=== PATIENT | male | born 1945 ===

== ENCOUNTER 2023-05-17 06:00 | Outpatient (RCR) | payer MEDICARE, SELFPAY | END 2023-05-19 23:59 | disposition home or self-care (01) | LOC: GOT 06:00 | PROVIDERS: Visit Provider Physical Medicine & Rehabilitation | DX: R29.818 Other symptoms and signs involving the nervous system (principal) | CPT/HCPCS: 97110; 97112; 97166 ==

== ENCOUNTER 2023-05-17 06:00 | Outpatient (RCR) | payer MEDICARE, SELFPAY | END 2023-05-19 23:59 | disposition home or self-care (01) | LOC: GPT 06:00 | PROVIDERS: Visit Provider Physical Medicine & Rehabilitation | DX: M62.81 Muscle weakness (generalized) (principal) | CPT/HCPCS: 97110; 97112; 97162 ==

== ENCOUNTER 2023-05-20 06:00 | Outpatient (RCR) | payer MEDICARE, SELFPAY | END 2023-06-19 23:59 | disposition home or self-care (01) | LOC: GPT 06:00 | PROVIDERS: Visit Provider Physical Medicine & Rehabilitation | DX: M62.81 Muscle weakness (generalized) (principal) | CPT/HCPCS: 97110; 97112 ==

== ENCOUNTER 2023-05-20 06:00 | Outpatient (RCR) | payer MEDICARE, SELFPAY | END 2023-06-19 23:59 | disposition home or self-care (01) | LOC: GOT 06:00 | PROVIDERS: Visit Provider Physical Medicine & Rehabilitation | DX: I69.351 Hemiplegia and hemiparesis following cerebral infarction affecting right dominant side (principal); M62.81 Muscle weakness (generalized) | CPT/HCPCS: 97110; 97112 ==

== ENCOUNTER 2023-06-20 06:00 | Outpatient (RCR) | payer MEDICARE, SELFPAY | END 2023-07-19 23:59 | disposition home or self-care (01) | LOC: GOT 06:00 | PROVIDERS: Visit Provider Physical Medicine & Rehabilitation | DX: I69.939 Monoplegia of upper limb following unspecified cerebrovascular disease affecting unspecified side (principal) | CPT/HCPCS: 97110; 97112; 97140 ==

== ENCOUNTER 2023-06-23 16:04 | Outpatient (RCR) | payer MEDICARE, SELFPAY | END 2023-07-20 23:59 | disposition home or self-care (01) | LOC: GPT 16:04 | PROVIDERS: Visit Provider Physical Medicine & Rehabilitation | DX: M62.81 Muscle weakness (generalized) (principal) | CPT/HCPCS: 97110; 97112; 97164 ==

== ENCOUNTER 2023-07-21 06:00 | Outpatient (RCR) | payer MEDICARE, SELFPAY | END 2023-08-18 23:59 | disposition home or self-care (01) | LOC: GPT 06:00 | PROVIDERS: Visit Provider Physical Medicine & Rehabilitation | DX: M62.81 Muscle weakness (generalized) (principal) | CPT/HCPCS: 97110; 97112; 97164; 97530 ==

== ENCOUNTER 2023-08-19 06:00 | Outpatient (RCR) | payer MEDICARE, SELFPAY | END 2023-09-18 23:59 | disposition home or self-care (01) | LOC: GPT 06:00 | PROVIDERS: Visit Provider Physical Medicine & Rehabilitation | DX: M62.81 Muscle weakness (generalized) (principal) | CPT/HCPCS: 97110; 97112 ==

== ENCOUNTER 2023-09-19 06:00 | Outpatient (RCR) | payer MEDICARE, SELFPAY | END 2023-09-28 23:59 | disposition home or self-care (01) | LOC: GPT 06:00 | PROVIDERS: Visit Provider Physical Medicine & Rehabilitation | DX: M62.81 Muscle weakness (generalized) (principal) | CPT/HCPCS: 97110; 97112; 97164 ==

== ENCOUNTER 2024-08-18 06:30 | Outpatient (RCR) | payer MEDICARE, SELFPAY | END 2024-09-17 23:59 | disposition home or self-care (01) | LOC: GPT 06:30 | PROVIDERS: Visit Provider Orthopaedic Surgery | DX: M75.121 Complete rotator cuff tear or rupture of right shoulder, not specified as traumatic (principal) | CPT/HCPCS: 97162 ==